=== PATIENT | male | born 1990 | race Caucasian/White ===

== ENCOUNTER 2020-04-06 11:27 | Day surgery (SDCO) | payer OTHER ==
[~2020-04-06 11:27] MED LIST: CYCLOBENZAPRINE10 MG PO; IBUPROFEN800 MG PO; NORCO 5-325 TA1 EACH PO; VIBRAMYCIN100 MG PO
[2020-04-06 12:23] LABS: BASOPHIL 0.3 % (0-2); EOSINOPHIL 0.1 % (0-5); HCT 48.8 % (42.0-52.0); HGB 15.4 g/dl (13.2-18.0); LYMPHOCYTE 11.8 % (15-48); MCH 28.9 pg (25.0-31.0); MCHC 31.6 g/dL (32.0-36.0); MCV 91.7 fL (78.0-100.0); MONOCYTE 12.8 % (0-12); MPV 9.1 fL (6.0-9.5); NEUTROPHIL 74.7 % (41-80); NRBC 0; PLT 254 K/uL (150-400); RBC 5.32 M/uL (4.70-6.00); RDW 13.3 % (11.5-14.0); WBC 12.9 K/uL (4.0-10.5)
[2020-04-06 12:59] LABS: BILIRUBIN NEGATIVE (NEGATIVE); BLOOD NEGATIVE Ery/uL (NEGATIVE); CLARITY CLEAR (CLEAR); COLOR YELLOW (YELLOW); GLUCOSE (U) NORMAL (NORMAL); LEUKOCYTES NEGATIVE Leu/uL (NEGATIVE); NITRITE NEGATIVE (NEGATIVE); PROTEIN NEGATIVE (NEGATIVE); SPECIFIC GRAVITY 1.025 (1.001-1.030); UROBILINOGEN 0.2 mg/dL (0.2-1.0)
[2020-04-06 13:01] LABS: ALBUMIN 2.7 g/dL (3.4-5.0); BILIRUBIN - TOTAL 0.4 mg/dL (0.2-1.0); CREATININE 0.88 mg/dL (0.67-1.17); GLOBULIN (CALCULATION) 4.7 g/dL; POTASSIUM 4.3 mmol/L (3.5-5.1); TOTAL PROTEIN 7.4 g/dL (6.4-8.2)
[2020-04-06 13:13] LABS: LACTIC ACID 1.1 mmol/L (0.4-1.9)
[2020-04-06 15:13] LABS: BARBITURATES NEGATIVE (NEGATIVE); ECSTASY (MDMA) POSITIVE (NEGATIVE); MARIJUANA (THC) NEGATIVE (NEGATIVE); METHADONE NEGATIVE (NEGATIVE); OPIATES POSITIVE (NEGATIVE)
[2020-04-06 15:14] LABS: AMPHETAMINES POSITIVE (NEGATIVE); OXYCODONE NEGATIVE (NEGATIVE)
--- NOTE | 2020-04-06 19:50 | NUR ---
APPROXIMATELY 1919, THIS NURSE ENTERED PATIENTS ROOM TO PERFORM INITIAL ASSESSMENT, AND PATIENT STATES, "I WANT DISCHARGE PAPERWORK SO THAT I CAN LEAVE". PATIENT SIGNED AMA PAPERWORK, DELIVERY AGENT NOTIFIED, CLAIM INSPECTOR NOTIFIED. 1945- REMOVED #20 GAUGE IV IN THE RIGHT FOREARM AND PLACED GAUZE AND TAPE TO MAINTAIN PRESSURE. CATHETER INTACT. PATIENT ALERT AND ORIENTED X3. 1946- PATIENT TRANSPORTED OUT VIA WHEELCHAIR BY CLAIM INSPECTOR.
[2020-04-07] MEDS ORDERED: METRONIDAZOLE500 MG PO (14:43)
== END 2020-04-06 19:47 | disposition left against medical advice (07) ==
LOC: FER 11:27 → FMS 14:58
PROVIDERS: Emergency Medicine; ADMIT Internal Medicine
DX: R10.84 Generalized abdominal pain (principal); F17.210 Nicotine dependence, cigarettes, uncomplicated; K21.9 Gastro-esophageal reflux disease without esophagitis; J45.909 Unspecified asthma, uncomplicated; D72.829 Elevated white blood cell count, unspecified; R00.0 Tachycardia, unspecified; F15.10 Other stimulant abuse, uncomplicated; I88.0 Nonspecific mesenteric lymphadenitis; Z53.29 Procedure and treatment not carried out because of patient's decision for other reasons; Z88.0 Allergy status to penicillin; Z20.822 Contact with and (suspected) exposure to COVID-19
CPT/HCPCS: 36415; 80053; 80305; 81003; 83605; 83690; 85025; 87045; 87046; 87205; 94010; G0378; J2270; J7030; Q9967; U0002

== ENCOUNTER 2020-04-07 10:41 | Emergency (ER) | payer OTHER ==
[2020-04-07 12:33] LABS: BASOPHIL 0.2 % (0-2); EOSINOPHIL 0.2 % (0-5); HCT 44.7 % (42.0-52.0); HGB 14.6 g/dl (13.2-18.0); LYMPHOCYTE 9.7 % (15-48); MCH 28.9 pg (25.0-31.0); MCHC 32.7 g/dL (32.0-36.0); MCV 88.5 fL (78.0-100.0); MONOCYTE 14.9 % (0-12); MPV 9.3 fL (6.0-9.5); NEUTROPHIL 74.6 % (41-80); NRBC 0; PLT 291 K/uL (150-400); RBC 5.05 M/uL (4.70-6.00); RDW 13.4 % (11.5-14.0); WBC 8.3 K/uL (4.0-10.5)
[2020-04-07 12:51] LABS: ALBUMIN 2.6 g/dL (3.4-5.0); BILIRUBIN 1+ mg/dL (NEGATIVE); BILIRUBIN - TOTAL 0.2 mg/dL (0.2-1.0); BLOOD NEGATIVE Ery/uL (NEGATIVE); CLARITY CLEAR (CLEAR); COLOR YELLOW (YELLOW); CREATININE 0.75 mg/dL (0.67-1.17); GLOBULIN (CALCULATION) 4.9 g/dL; GLUCOSE (U) NORMAL (NORMAL); LEUKOCYTES NEGATIVE Leu/uL (NEGATIVE); NITRITE NEGATIVE (NEGATIVE); POTASSIUM 3.7 mmol/L (3.5-5.1); PROTEIN NEGATIVE (NEGATIVE); SPECIFIC GRAVITY >=1.030 (1.001-1.030); TOTAL PROTEIN 7.5 g/dL (6.4-8.2); UROBILINOGEN 0.2 mg/dL (0.2-1.0); pH 5.5 (5.0-9.0)
[2020-04-07] MEDS ORDERED: METRONIDAZOLE500 MG PO (14:43)
== END 2020-04-07 15:05 | disposition home or self-care (01) ==
LOC: FER 10:41
PROVIDERS: Emergency Medicine
DX: K52.9 Noninfective gastroenteritis and colitis, unspecified (principal); R59.0 Localized enlarged lymph nodes; F17.200 Nicotine dependence, unspecified, uncomplicated; Z88.0 Allergy status to penicillin
CPT/HCPCS: 36415; 80053; 81003; 85025; Q9967

== ENCOUNTER 2021-08-12 15:47 | Emergency (ER) | payer OTHER ==
[~2021-08-12 15:47] MED LIST changes: +METRONIDAZOLE500 MG PO; +PERCOCET 5-3251 EACH PO
[2021-08-12] MEDS ORDERED: BACTRIM DS TAB1 EACH PO (17:10)
== END 2021-08-12 18:54 | disposition home or self-care (01) ==
LOC: FER 15:47
DX: L02.413 Cutaneous abscess of right upper limb (principal); L03.113 Cellulitis of right upper limb; F17.210 Nicotine dependence, cigarettes, uncomplicated; Z88.0 Allergy status to penicillin
CPT/HCPCS: 99282